=== PATIENT | female | born 1940 | race Caucasian/White ===

== ENCOUNTER 2018-03-24 18:36 | Emergency (ER) | payer BC, OTHER, MEDICARE ==
[2018-03-24] MEDS: ACETAMINOPHEN 500 MG TAB PO (20:26)
== END 2018-03-24 23:13 | disposition home or self-care (01) ==
LOC: FTE 18:36
DX: S01.512A Laceration without foreign body of oral cavity, initial encounter (principal); S29.9XXA Unspecified injury of thorax, initial encounter; R40.2412 Glasgow coma scale score 13-15, at arrival to emergency department; W01.198A Fall on same level from slipping, tripping and stumbling with subsequent striking against other object, initial encounter; Y92.9 Unspecified place or not applicable; Z87.891 Personal history of nicotine dependence
CPT/HCPCS: 12011; 70450; 71110; 72125; 99284-25